=== PATIENT | male | born 1970 | race Caucasian/White ===

== ENCOUNTER → 2019-04-28 | Outpatient (REF) | payer MEDICARE, MEDICAID ==
[~2019-04-28] MED LIST: ALBU17IN INH; ALBU17IN2 OR; AMBI10TA; AMBI10TA PO; ATIV0.5T; ATIV1TAB2 PO; ATIV1TAB7 PO; BACT400T PO; DEPA250T2; NEXI1CAP3; NEXI40CA PO; RISP0.5T20; RISP0.5T21 PO; VICO5TAB17 PO; ZOLO50TA PO
== END ==
LOC: M LAB LCGH 10:57
PROVIDERS: ATTEND Surgery
DX: L73.2 Hidradenitis suppurativa (principal)